=== PATIENT | female | born 1975 | race Caucasian/White ===

== ENCOUNTER → 2024-05-29 | Outpatient (CLI) | payer OTHER ==
--- NOTE | 2024-05-29 11:36 | XR ---
EXAMINATION TYPE: XR knee complete RT DATE OF EXAM: 05/29/2024 11:32 AM COMPARISON: None. CLINICAL INDICATION: Female, 49 years old with history of S80.01XA CONTUSION OF RIGHT KNEE, INITIAL E NCOUNTER, pain TECHNIQUE: Three views of the right knee are obtained. FINDINGS: There is no acute fracture/dislocation evident in the right knee. Mild to moderate tricomp artment joint space loss. The overlying soft tissue appears unremarkable. IMPRESSION: There is no acute fracture or dislocation in the the right knee. [facility], , 05/29/2024 11:33 AM
== END | disposition home or self-care (01) ==
LOC: RADXRMAIN 11:16
PROVIDERS: ATTEND Emergency Medicine
DX: S80.01XA Contusion of right knee, initial encounter (principal); X58.XXXA Exposure to other specified factors, initial encounter

== ENCOUNTER → 2024-06-05 | Outpatient (CLI) | payer OTHER ==
--- NOTE | 2024-06-05 10:41 | XR ---
EXAMINATION TYPE: XR knee complete RT DATE OF EXAM: 06/05/2024 10:34 AM COMPARISON: 05/29/2024 CLINICAL INDICATION: Female, 49 years old with history of S80.01XD CONTUSION OF RIGHT KNEE, SUBSEQUEN T ENCOU, pain TECHNIQUE: Three views of the right knee are obtained. FINDINGS: There is no acute fracture/dislocation evident in right knee. The tri-compartment joint s paces appear within normal limits. The overlying soft tissue appears unremarkable. IMPRESSION: There is no acute fracture or dislocation in the right knee. [facility], , 06/05/2024 10:39 AM
== END | disposition home or self-care (01) ==
LOC: RADXRMAIN 10:21
PROVIDERS: ATTEND Emergency Medicine
DX: S80.01XD Contusion of right knee, subsequent encounter (principal); X58.XXXD Exposure to other specified factors, subsequent encounter

== ENCOUNTER → 2024-06-15 | Outpatient (CLI) | payer OTHER ==
--- NOTE | 2024-06-16 21:55 | MR ---
EXAMINATION TYPE: MR knee RT wo con DATE OF EXAM: 06/15/2024 3:24 PM COMPARISON: 06/05/2024. CLINICAL INDICATION: Female, 49 years old with history of S80.01XD CONTUSION OF RIGHT KNEE, SUBSEQUEN T ENCOU; PHH, Right knee pain, S/P fall 05-26-24. TECHNIQUE: Multi planar, multi sequence imaging was performed of the knee including: Triplane proton density fat-saturated images and T1-weighted imaging. No Gadolinium was given. IV Contrast: mL (none if empty) FINDINGS: Medial meniscus: Free edge fraying of the body. Medial femorotibial cartilage: Intact Medial collateral ligament: Intact Lateral meniscus: Intact Lateral femorotibial cartilage: Intact Lateral collateral ligament complex: Intact Patellofemoral alignment: Normal Patellofemoral cartilage: Grade-III chondromalacia. Extensor mechanism: Intact. Joint/bursal fluid: None. Muscles/tendons: The patellar tendon, quadriceps tendon, IT band, pes anserinus tendons, semimembrano ulices tendon, popliteus tendon, and biceps femoris tendon are all within normal limits. Bone marrow: Normal. Anterior cruciate ligament: Intact. Posterior cruciate ligament: Intact. Soft tissues: Unremarkable. IMPRESSION: 1. No definitive evidence to suggest meniscal tear nor ligamentous injury. Mild free edge fraying of the medial meniscus body. 2. No evidence for bone fracture or bony edema [facility], , 06/16/2024 9:52 PM
== END | disposition home or self-care (01) ==
LOC: RADMRIMAIN 14:32
PROVIDERS: ATTEND Emergency Medicine
DX: S80.01XD Contusion of right knee, subsequent encounter (principal)

== ENCOUNTER → 2024-10-04 | Outpatient (CLI) | payer OTHER ==
--- NOTE | 2024-10-04 09:40 | MR ---
EXAMINATION TYPE: MR knee RT wo con DATE OF EXAM: 10/04/2024 7:18 AM COMPARISON: 06/15/2024 CLINICAL INDICATION: Female, 49 years old with history of M23.8X1 internal derangement R knee, Right knee pain, reevaluate, compare to prior IV Contrast: cc (None if empty) TECHNIQUE: Multiplanar, multisequence images of the knee is performed without IV contrast. FINDINGS: MEDIAL MENISCUS: Anterior and posterior horns are intact without tear. 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 LATERAL MENISCUS: Anterior and posterior horns are intact without tear. CRUCIATE LIGAMENTS: The anterior and posterior cruciate ligaments are intact and unremarkable. COLLATERAL LIGAMENTS: The medial collateral ligament and lateral collateral ligament complex are inta ct and unremarkable. EXTENSOR MECHANISM: Visualized quadriceps and patellar tendons are intact. EFFUSION: No significant suprapatellar joint effusion. POPLITEAL CYST: No popliteal/yan cyst. TRICOMPARTMENT SPACES: Intact CARTILAGE: Intact BONE MARROW SIGNAL: No focal abnormal marrow signal is appreciated. OTHER: No additional significant abnormality is appreciated. IMPRESSION: 1. 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 [facility], , 10/04/2024 9:37 AM
== END | disposition home or self-care (01) ==
LOC: RADMRIMAIN 06:42
PROVIDERS: ATTEND Orthopaedic Surgery
DX: S83.91XD Sprain of unspecified site of right knee, subsequent encounter (principal)